=== PATIENT | male | born 1965 | race Two or more races ===

== ENCOUNTER 2017-01-15 07:58 | Emergency (ER) | payer MEDICAID ==
[~2017-01-15] VITALS: Ht 177.8 cm; Wt 83.5 kg
[~2017-01-15 07:58] MED LIST: AMOX-263 PO; GABA300C8; NAPR-607
[2017-01-15 08:21] VITALS: BP 131/68
[2017-01-15] MEDS ORDERED: ONDANSETRON HCL 4 MG/2 ML VIAL IM ONE (08:45)
[2017-01-15] MEDS ORDERED: HYDROmorphone HCL 2 MG/ML VL IM ONE (08:45)
== END 2017-01-15 10:12 | disposition home or self-care (01) ==
LOC: ER 07:58
DX: M51.86 Other intervertebral disc disorders, lumbar region (principal); Z88.6 Allergy status to analgesic agent
CPT/HCPCS: 72131; 82962; 93005; 96372; 99284; J1170; J2405

== ENCOUNTER 2022-12-30 10:08 | Emergency (ER) | payer MEDICAID ==
[~2022-12-30] VITALS: Ht 172.7 cm; Wt 68.1 kg
[~2022-12-30 10:08] MED LIST changes: +GABA300C10; -GABA300C8; -NAPR-607; +NAPR500T31
[2022-12-30] MEDS ORDERED: cefTRIAXone SOD 1,000 MG VL IM ONE (11:15)
[2022-12-30] MEDS ORDERED: methylPREDNISolone SOD SUCC 125 MG/2 ML VL IM ONE (11:15)
[2022-12-30 11:55] VITALS: BP 126/75
[2022-12-30] MEDS ORDERED: LIDO2SOL23 MT (12:06)
[2022-12-30] MEDS ORDERED: AZIT250T8 PO (12:06)
[2022-12-30] MEDS ORDERED: PROM1SOL4 PO (12:06)
== END 2022-12-30 12:11 | disposition home or self-care (01) ==
LOC: ER 10:08
DX: J03.90 Acute tonsillitis, unspecified (principal); H66.92 Otitis media, unspecified, left ear; Z79.899 Other long term (current) drug therapy; Z79.2 Long term (current) use of antibiotics; Z88.5 Allergy status to narcotic agent
CPT/HCPCS: 71046; 96372; 99284; J0696; J2930

== ENCOUNTER 2023-02-07 23:31 | Emergency (ER) | payer MEDICAID ==
[~2023-02-07] VITALS: Ht 172.7 cm; Wt 65.9 kg
[~2023-02-07 23:31] MED LIST changes: +AZIT250T8 PO; +LIDO2SOL23 MT; +PROM1SOL4 PO
[2023-02-08] MEDS ORDERED: NAP500T PO (04:19)
[2023-02-08 05:05] VITALS: BP 119/85
== END 2023-02-08 05:10 | disposition home or self-care (01) ==
LOC: ER 23:31
DX: S83.91XA Sprain of unspecified site of right knee, initial encounter (principal); Z79.2 Long term (current) use of antibiotics; Z79.899 Other long term (current) drug therapy; Z88.5 Allergy status to narcotic agent; W01.0XXA Fall on same level from slipping, tripping and stumbling without subsequent striking against object, initial encounter; Y93.89 Activity, other specified; Y92.89 Other specified places as the place of occurrence of the external cause; Y99.8 Other external cause status
CPT/HCPCS: 29505; 73562

== ENCOUNTER 2024-02-05 09:00 | Inpatient (IN) | payer MEDICAID ==
[~2024-02-05] VITALS: Ht 172.7 cm; Wt 90.0 kg
[2024-02-05 09:00] VITALS: BP 144/96; RESP 14; O2SAT 98
[~2024-02-05 09:00] MED LIST changes: +AZIT-185 PO; -AZIT250T8 PO; +GABA-1250; -GABA300C10; +IBUP-1455 PO; -LIDO2SOL23 MT; +LIDO2SOL26 MT; +NAP500T PO; +NAPR-746; -NAPR500T31
[2024-02-05 09:22] VITALS: PULSE 62
[2024-02-05 10:10] LABS: Basophils # (auto) 0 10 ^3/uL (0-0.2); Basophils % (auto) 0.6 % (0.0-2.0); Eosinophils # (auto) 0.2 10 ^3/uL (0-0.8); Eosinophils % (auto) 3.6 % (0.0-7.0); Hematocrit 44.3 % (41.0-53.0); Hemoglobin 15.2 g/dL (13.5-17.5); Lymphocytes # (auto) 1.2 10 ^3/uL (0.4-5.4); Lymphocytes % (auto) 18.9 % (10.0-50.0); Mean Corpuscular Hgb Conc. 34.3 g/dL (32.0-36.0); Mean Corpuscular Volume 87.4 fL (80.0-100.0); Monocytes # (auto) 0.6 10 ^3/uL (0-1.3); Monocytes % (auto) 8.9 % (0.0-12.0); Neutrophils # (auto) 4.4 10 ^3/uL (1.6-8.6); Nucleated Red Blood Cells % 0.1 %; Red Blood Cells 5.08 10^6/uL (4.5-5.90); Red Cell Distribution Width 14.2 % (11.8-14.3); White Blood Cell 6.5 10^3/uL (4.4-10.8)
[2024-02-05 10:19] LABS: Alanine Aminotransferase 22 U/L (7-40); Albumin 4.5 g/dL (3.2-4.8); Alkaline Phosphatase 109 U/L (46-116); Anion Gap 3 (5-15); Aspartate Aminotransferase 15 U/L (13-40); BUN/Creatinine Ratio 10.1 (10.0-20.0); Blood Urea Nitrogen 9 mg/dL (9-23); Calcium 9.5 mg/dL (8.5-10.1); Carbon Dioxide 30 mmol/L (20-30); Chloride 103 mmol/L (98-107); Glucose 240 mg/dL (74-106); Potassium 5.1 mmol/L (3.5-5.1); Sodium 136 mmol/L (136-145)
[2024-02-05 10:20] LABS: Bilirubin, Total 0.4 mg/dL (0.2-1.0); Total Protein 7.2 g/dL (5.7-8.2)
[2024-02-05 11:18] LABS: INR 0.97 (0.9-1.15); Prothrombin Time 10.3 sec (9.3-11.8)
[2024-02-05] MEDS: IOHEXOL 350 MG/ML 100ML IJ ONE (12:19)
[2024-02-05] MEDS: ASPirin 81 mg TAB PO ONE (12:31)
[2024-02-05] MEDS ORDERED: MORPHINE SULFATE INJ 2 MG/ml SYRG IV PRN (14:00)
[2024-02-05] MEDS ORDERED: NITROGLYCERIN 0.4 MG SL TAB SL PRN (14:00)
[2024-02-05] MEDS ORDERED: HYDROcodone-ACET 5/325MG TAB PO PRN (14:00)
[2024-02-05] MEDS ORDERED: DOCUSATE SOD 100 MG CAP PO PRN (14:00)
[2024-02-05] MEDS ORDERED: ONDANSETRON HCL 4 MG/2 ML VIAL IV PRN (14:00)
[2024-02-05] MEDS ORDERED: ACETAMINOPHEN 325 MG TAB PO PRN (14:00)
[2024-02-05] MEDS ORDERED: DEXTROSE (50%) 50ML SYRG IV PRN (14:00)
[2024-02-05] MEDS ORDERED: HYDROcodone-ACET 10/325MG TAB PO PRN (14:15)
[2024-02-05] MEDS ORDERED: ACCU-CHEK COMFORT CURVE STRIP VI SCH (17:00)
[2024-02-05] MEDS ORDERED: InsuLIN REG 1unit/0.01ml Soln (100units/ml) SC SCH (17:00)
[2024-02-05] MEDS ORDERED: ATORVASTATIN 20 MG TAB PO SCH (22:00)
[2024-02-06] MEDS ORDERED: ASPirin-EC 81 mg tab PO SCH (10:00)
[2024-02-06] MEDS ORDERED: CLOPIDOGREL BISULFATE 75 MG TAB PO SCH (10:00)
== END 2024-02-05 20:25 | disposition left against medical advice (07) | DRG 46 ==
LOC: ER 09:00 → TELE 14:00
PROVIDERS: ADMIT Nurse Practitioner Family; ATTEND Nurse Practitioner Family
DX: I65.21 Occlusion and stenosis of right carotid artery (principal); E66.9 Obesity, unspecified; G43.909 Migraine, unspecified, not intractable, without status migrainosus; F17.200 Nicotine dependence, unspecified, uncomplicated; G47.10 Hypersomnia, unspecified; G89.29 Other chronic pain; Z53.29 Procedure and treatment not carried out because of patient's decision for other reasons; Z79.2 Long term (current) use of antibiotics; Z79.899 Other long term (current) drug therapy; Z88.5 Allergy status to narcotic agent; Z68.30 Body mass index [BMI] 30.0-30.9, adult
CPT/HCPCS: 36415; 70450; 70496; 71045; 80053; 82140; 83880; 84484; 85025; 85610; 85730; 93005; 93886; G0378

== ENCOUNTER 2024-06-24 19:36 | Emergency (ER) | payer MEDICAID ==
[~2024-06-24] VITALS: Ht 172.7 cm; Wt 70.4 kg
[2024-06-24 20:35] VITALS: PULSE 95; RESP 17; O2SAT 100
--- NOTE | 2024-06-24 20:58 | ED.PDOC ---
History of Present Illness HPI Comments 59 y/o M, with a Hx of CVA, HLD, and tobacco use, presents with c/o left tonsil abscess and throat pain x10 days. Patient endorses on unprovoked onset, with worsening associated throat pain since. Patient comments on seeing his PCP and being placed on Z-pac medication regimen for tonsillitis 8x days ago and finishing the treatment, yesterday, with no relief or improvement. Patient then states on being seen and sent from [facility] care for issue. Patient denies having any jaw pain, numbness, tingling, fever, chills, or other associated symptoms or modifiers at this time. Chief Complaint: Sore Throat Time Seen by MD: 20:40 Primary Care Provider: RERE Reviewed Notes: Nurses Notes, Medications, Allergies Allergies: Coded Allergies: Morphine (Verified Allergy, Unknown, 01/15/17) Home Meds Active Scripts Ibuprofen Micronized (Ibuprofen) 800 Mg Tab, 800 MG PO TID PRN for 14 Days, #42 TAB Prov:DALE ORDAZ 02/26/23 Naproxen (NAPROSYN TABLET) 500 Mg Tb, 1 TAB PO BID PRN, #30 TAB 0 Refills Prov:SONJA CASTANEDA 02/08/23 Lidocaine HCl (Mouth-Throat) (Lidocaine HCl Viscous) 2 % Alie, 5 ML MT TID, #100 ML Prov:MARISA RUBIO 12/30/22 Promethazine-Dm (Promethazine Dm 6.25-15 mg/5Ml) 1 Alie Alie, 5 ML PO TID, #150 ML Prov:MARISA RUBIO 12/30/22 Azithromycin (ZITHROMAX TABLET) 250 Mg Tb, 250 MG PO DAILY, #6 TAB Prov:MARISA RUBIO 12/30/22 Amoxicillin & Pot Clavulanate (Augmentin) 875 Mg Tab, 875 MG PO BID for 14 Days, TAB Prov:RICHARD MICHEL MD 10/05/13 Reported Medications Naproxen (Naproxen) 500 Mg Tab, #60 10/02/13 Gabapentin (Gabapentin) 300 Mg Cap, #180 10/02/13 Information Source: Patient Mode of Arrival: Ambulatory Severity: Moderate Timing: Days Duration: Since onset Prehospital treatment: Other (see HPI) Context: see HPI Location: see HPI Quality see HPI Worsens see HPI Improves see HPI Associated signs and symptoms see HPI Other History see HPI Past Medical History PAST MEDICAL HISTORY: CVA, High Lipids Surgical History: Denies all surgeries Family History Family History: Unknown Social History Smoker: Cigarettes Alcohol: Denies ETOH Use Drugs: Denies Drug Use Lives In: Home Constitutional: denies: chills, diaphoresis, fatigue, fever, malaise, sweats, weakness, others EENTM: reports: throat pain, others (left tonsil abscess ); denies: blurred vision, double vision, ear bleeding, ear discharge, ear drainage, ear pain, ear ringing, eye pain, eye redness, hearing loss, mouth pain, mouth swelling, nasal discharge, nose bleeding, nose congestion, nose pain, photophobia, tearing, throat swelling, voice changes Respiratory: denies: cough, hemoptysis, orthopnea, SOB at rest, shortness of breath, SOB with excertion, stridor, wheezing, others Cardiovascular: denies: chest pain, dizzy spells, diaphoresis, Dyspnea on exertion, edema, irregular heart beat, left arm pain, lightheadedness, palpitations, PND, syncope, others Gastrointestinal: denies: abdomen distended, abdominal pain, blood streaked bowels, constipated, diarrhea, dysphagia, difficulty swallowing, hematemesis, melena, nausea, poor appetite, poor fluid intake, rectal bleeding, rectal pain, vomiting, others Genitourinary: denies: burning, dysuria, flank pain, frequency, hematuria, inc ontinence, penile discharge, penile sore, pain, testicle pain, testicle swelling, urgency, others Neurological: denies: dizziness, fainting, headache, left sided numbness, left sided weakness, numbness, paresthesia, pre-existing deficit, right sided numbness, right sided weakness, seizure, speech problems, tingling, tremors, weakness, others Musculoskeletal: denies: back pain, gout, joint pain, joint swelling, muscle pain, muscle stiffness, neck pain, others Integumetry: denies: bruises, change in color, change in hair/nails, dryness, laceration, lesions, lumps, rash, wounds, others Allergic/Immunocompromised: denies: Difficulty Healing, Frequent Infections, Hives, Itching, others Hematologic/Lymphatic: denies: anemia, blood clots, easy bleeding, easy bruising, swollen glands, others Endocrine: denies: excessive hunger, excessive sweating, excessive thirst, excessive urination, flushing, intolerance to cold, intolerance to heat, unexplained weight gain, unexplained weight loss, others Psychiatric: denies: anxiety, bipolar disorder, depression, hopeless, panic disorder, schizophrenia, sleepless, suicidal, others All Other Systems: Reviewed and Negative Physical Exam General Appearance: Mild Distress, Normal HEENT: Pharyngeal Erythema (Left side with purulent abscess), Pharynx Normal, TM Abnormal (L) ( 3x5cm peritonsillar abscess w/puss on the left tonsil) Neck: Full Range of Motion, Non-Tender, Normal, Normal Inspection Respiratory: Chest Non-Tender, Lungs Clear, No Accessory Muscle Use, No R espiratory Distress, Normal Breath Sounds Cardiovascular: No Edema, No JVD, No Murmur, No Gallop, Normal Peripheral Pulses, Regular Rate/Rhythm Breast Exam: Deferred Gastrointestinal: No Organomegaly, Non Tender, No Pulsatile Mass, Normal Bowel Sounds, Soft Genitalia: Deferred Pelvic: Deferred Rectal: Deferred Extremities: No calf tenderness, Normal capillary refill, Normal inspection, Normal range of motion, Non-tender, No pedal edema Musculoskeletal : Apperance: Normal Neurologic: Alert, financial advocate II-XII nml as Tested, No Motor Deficits, Normal Affect, Normal Mood, No Sensory Deficits Cerebellar Function: Normal Reflexes: Normal Skin: Dry, Normal Color, Warm Lymphatic: No Adenopathy Was a procedure done? Was a procedure done?: No Differential Dx Considerations may include: peritonsillar abscess, cellulitis X-Ray, Labs, Meds, VS Vital Signs Date Time Temp Pulse Resp B/P (MAP) Pulse Ox O2 Delivery O2 Flow Rate FiO2 06/24/24 20:35 95 17 100 Room Air* 0 21 06/24/24 20:15 97.7 95 14 129/76 (93) 100 97.7 06/24/24 20:06 97.7 95 19 129/76 (93) 100 Lab Test 06/24/24 20:36 Range/Units White Blood Count 6.5 4.4-10.8 10^3/uL Red Blood Count 4.97 4.5-5.90 10^6/uL Hemoglobin 14.7 13.5-17.5 g/dL Hematocrit 41.4 41.0-53.0 % Mean Corpuscular Volume 83.3 80.0-100.0 fL Mean Corpuscular Hemoglobin 29.6 28.0-32.0 pg Mean Corpuscular Hemoglobin Concent 35.6 32.0-36.0 g/dL Red Cell Distribution Width 14.9 H 11.8-14.3 % Platelet Count 441 140-450 10^3/uL Mean Platelet Volume 6.6 L 6.9-10.8 fL Neutrophils (%) (Auto) 66.3 37.0-80.0 % Lymphocytes (%) (Auto) 19.6 10.0-50.0 % Monocytes (%) (Auto) 8.7 0.0-12.0 % Eosinophils (%) (Auto) 4.8 0.0-7.0 % Basophils (%) (Auto) 0.6 0.0-2.0 % Neutrophils # (Auto) 4.3 1.6-8.6 10 ^3/uL Lymphocytes # (Auto) 1.3 0.4-5.4 10 ^3/uL Monocytes # (Auto) 0.6 0-1.3 10 ^3/uL Eosinophils # (Auto) 0.3 0-0.8 10 ^3/uL Basophils # (Auto) 0 0-0.2 10 ^3/uL Nucleated Red Blood Cells 0.1 % Prothrombin Time Pending Prothrombin Time INR Pending Sodium Level Pending Potassium Level Pending Chloride Level Pending Carbon Dioxide Level Pending Anion Gap Pending Blood Urea Nitrogen Pending Creatinine Pending Glomerular Filtration Rate Calc Pending BUN/Creatinine Ratio Pending Serum Glucose Pending Calcium Level Pending Total Bilirubin Pending Aspartate Amino Transferase (AST) Pending Alanine Aminotransferase (ALT) Pending Alkaline Phosphatase Pending Total Protein Pending Albumin Pending The patient will placed on clindamycin 900 mg and Solu-Medrol [address] of the neck with contrast and without are pending. The patient will be transferred to [facility] by Dr. Heriberto Salomon. Time of 1ST Reevaluation: 21:10 Reevaluation 1ST: Unchanged Patient Education/Counseling: Diagnosis, Treatment Family Education/Counseling: No Family Present Departure 1 Departure Time of Disposition: 21:18 Impression: Primary Impression: Acute tonsillitis Qualified Codes: J03.90 - Acute tonsillitis, unspecified Additional Impression: Peritonsillar abscess determined by examination Disposition: 02 SHORT TERM HOSPITAL Condition: Stable Discharged With: Self Critical Care Note Critical Care Time?: No Stability Stability form required: No Heart Score Heart Score: Heart Score Response (Comments) Value History N/A 0 EKG N/A 0 Age N/A 0 Risk Factors N/A 0 Troponin N/A 0 Total 0 ALBERTO FUENTES Jun 24, 2024 20:58 MEL PARKINSON MD Jun 24, 2024 21:19
[2024-06-24 21:02] LABS: Basophils # (auto) 0 10 ^3/uL (0-0.2); Basophils % (auto) 0.6 % (0.0-2.0); Eosinophils # (auto) 0.3 10 ^3/uL (0-0.8); Eosinophils % (auto) 4.8 % (0.0-7.0); Hematocrit 41.4 % (41.0-53.0); Hemoglobin 14.7 g/dL (13.5-17.5); Lymphocytes # (auto) 1.3 10 ^3/uL (0.4-5.4); Lymphocytes % (auto) 19.6 % (10.0-50.0); Mean Corpuscular Hemoglobin 29.6 pg (28.0-32.0); Mean Corpuscular Hgb Conc. 35.6 g/dL (32.0-36.0); Mean Corpuscular Volume 83.3 fL (80.0-100.0); Monocytes # (auto) 0.6 10 ^3/uL (0-1.3); Monocytes % (auto) 8.7 % (0.0-12.0); Neutrophils # (auto) 4.3 10 ^3/uL (1.6-8.6); Neutrophils % (auto) 66.3 % (37.0-80.0); Nucleated Red Blood Cells % 0.1 %; Platelet Count (auto) 441 10^3/uL (140-450); Red Blood Cells 4.97 10^6/uL (4.5-5.90); Red Cell Distribution Width 14.9 % (11.8-14.3); White Blood Cell 6.5 10^3/uL (4.4-10.8)
[2024-06-24 21:16] LABS: INR 1.04 (0.9-1.15)
[2024-06-24 21:21] LABS: Alanine Aminotransferase 25 U/L (7-40); Albumin 4.5 g/dL (3.2-4.8); Alkaline Phosphatase 152 U/L (46-116); Anion Gap 5 (5-15); Aspartate Aminotransferase 17 U/L (13-40); BUN/Creatinine Ratio 9.6 (10.0-20.0); Bilirubin, Total 0.4 mg/dL (0.2-1.0); Blood Urea Nitrogen 8 mg/dL (9-23); Calcium 9.4 mg/dL (8.7-10.4); Carbon Dioxide 28 mmol/L (20-30); Chloride 96 mmol/L (98-107); Glucose 232 mg/dL (74-106); Potassium 4.2 mmol/L (3.5-5.1); Sodium 129 mmol/L (136-145); Total Protein 8.9 g/dL (5.7-8.2)
--- NOTE | 2024-06-24 21:21 | DVH ---
EXAM: CT NECK WITH CONTRAST SOFT INDICATION: tonsillar abscess EXAM DATE: 06/24/2024 10:41 PM COMPARISON: None TECHNIQUE: Multiple axial CT images of the neck were obtained using bone algorithm. Axial and coronal reformatting was done. Bone and soft tissue windows were reviewed. Radiation dose Information: CT Dose: CTDI volume is 18.46 mGy. Dose-length product is 560.79 mGy*cm Findings: Nasopharynx, hypopharynx, and larynx are normal in caliber without evidence of focal mass. 3.2 x 3.0 x 3.0 cm left peritonsillar abscess with numerous prominent bilateral cervical lymph nodes. For example, 2.3 x 1.5 cm left cervical level 2 node with central necrosis. Parotid, submandibular, and sublingual glands are within normal limits. The tongue is unremarkable. Thyroid gland within normal limits. Musculoskeletal structures grossly unremarkable with no evidence of acute osseous abnormality. Impression: 1. 3.2 x 3.0 x 3.0 cm left peritonsillar abscess with numerous prominent bilateral reactive cervical lymph nodes.
[2024-06-24 22:50] VITALS: BP 130/76; PULSE 94; RESP 18; TEMP 97.9; O2SAT 94
[2024-06-24] MEDS: methylPREDNISolone SOD SUCC 125 MG/2 ML VL IV ONE (23:03)
[2024-06-24] MEDS: CLINDAMYCIN 900MG IV 50 ML IV ONE (23:04)
== END 2024-06-24 22:56 | disposition short-term general hospital (02) ==
LOC: ER 19:36
DX: J36 Peritonsillar abscess (principal); D69.6 Thrombocytopenia, unspecified; F17.210 Nicotine dependence, cigarettes, uncomplicated; E87.5 Hyperkalemia; Z79.899 Other long term (current) drug therapy; Z88.5 Allergy status to narcotic agent; Z86.73 Personal history of transient ischemic attack (TIA), and cerebral infarction without residual deficits
CPT/HCPCS: 36415; 70491; 80053; 85025; 85610; 96365; 96375; 99285; J2919; J3490

== ENCOUNTER 2025-05-14 00:07 | Emergency (ER) | payer MEDICAID ==
[~2025-05-14] VITALS: Ht 175.3 cm; Wt 77.1 kg
[2025-05-14 00:16] VITALS: BP 132/77; RESP 18; TEMP 97.9; O2SAT 99
[2025-05-14] MEDS ORDERED: SODIUM CHLORIDE 0.9% 1,000 ML IV ONE (01:00)
[2025-05-14 01:20] VITALS: PULSE 89
[2025-05-14 01:35] LABS: Hematocrit 37.5 % (41.0-53.0); Hemoglobin 13.0 g/dL (13.5-17.5); Mean Corpuscular Hemoglobin 28.4 pg (28.0-32.0); Mean Corpuscular Volume 81.9 fL (80.0-100.0); Nucleated Red Blood Cells % 0.1 %
[2025-05-14 01:39] LABS: Anion Gap 10 (5-15); Carbon Dioxide 24 mmol/L (20-31); Chloride 99 mmol/L (98-107); Potassium 3.6 mmol/L (3.5-5.1)
[2025-05-14 01:40] LABS: Calcium 9.1 mg/dL (8.7-10.4)
[2025-05-14 01:41] LABS: Sodium 133 mmol/L (136-145)
[2025-05-14 01:45] LABS: BUN/Creatinine Ratio 15.4 (10.0-20.0); Blood Urea Nitrogen 14 mg/dL (9-23)
[2025-05-14 01:50] LABS: Glucose 206 mg/dL (74-106)
--- NOTE | 2025-05-14 01:50 | ED.PDOC ---
History of Present Illness HPI Comments 60-year-old male with a history of CVA, and hyperlipidemia was brought in by Emergency Services for the chief complaint of a possible overdose of an unknown amount of GHB. Patient's is noted to be going in and out of sleep consciousness, but is answering questions appropriately at this time but is noted to be unresponsive to painful stimuli. All vital signs with noted to be stable. Patient denies any nausea, vomiting, diarrhea, abdominal pain, headache, blurry vision, generalized weakness, chest pain, or any other associated symptom, modified, factor at this time. PHYSICAL EXAM: General: Awake, alert and oriented. No acute distress. Skin: Skin in warm, dry and intact. Appropriate color for ethnicity. HEENT: The head is normocephalic and atraumatic. Conjunctivae are clear without exudates or hemorrhage. Sclera is non-icteric. EOM are intact. No signs of nystagmus. Eyelids are normal in appearance without swelling or lesions. Oral mucosa is pink and moist Neck: The neck is supple with normal range of motion. No JVD. Cardiac: Heart rate and rhythm are normal. No murmurs, gallops, or rubs are auscultated. Respiratory: No signs of respiratory distress. Lung sounds are clear in all lobes bilaterally without rales, rhonchi, or wheezes. Abdominal: Abdomen is soft, non-tender without distention, guarding or rigidity. Bowel sounds are present and normoactive in all four quadrants. Extremities: Upper and lower extremities are atraumatic in appearance without deformity or edema. Neurological: The patient is awake, alert and oriented to person, place, and time with normal speech. Speech is clear. There is no facial asymmetry. Psychiatric: Appropriate mood and affect. Good judgement and insight. REVIEW OF SYSTEMS: General: No fever, no chills, or fatigue HEENT: No sore throat, no earache, no congestion, no neck pain. Cardiac: No chest pain. No palpitations. Lungs: No shortness of breath, no cough. GI: No nausea, no vomiting, no diarrhea, no constipation, no abdominal pain : No dysuria, frequency, or urgency. No hematuria. Musculoskeletal: No joint pain , no joint swelling, no extremity edema. Skin: No rash, no itching. Neuro: No headache, no dizziness, no weakness Chief Complaint: Overdose Time Seen by MD: 01:46 Primary Care Provider: RERE Reviewed Notes: Nurses Notes, Collection Administrator Notes, Medications, Allergies Allergies: Coded Allergies: Morphine (Verified Allergy, Unknown, 01/15/17) Home Meds Active Scripts Ibuprofen Micronized (Ibuprofen) 800 Mg Tab, 800 MG PO TID PRN for 14 Days, #42 TAB Prov:DALE ORDAZ [employer] MANAGER 02/26/23 Naproxen (NAPROSYN TABLET) 500 Mg Tb, 1 TAB PO BID PRN, #30 TAB 0 Refills Prov:SONJA CASTANEDA 02/08/23 Lidocaine HCl (Mouth-Throat) (Lidocaine HCl Viscous) 2 % Alie, 5 ML MT TID, #100 ML Prov:MARISA RUBIO 12/30/22 Promethazine-Dm (Promethazine Dm 6.25-15 mg/5Ml) 1 Alie Alie, 5 ML PO TID, #150 ML Prov:MARISA RUBIO 12/30/22 Azithromycin (ZITHROMAX TABLET) 250 Mg Tb, 250 MG PO DAILY, #6 TAB Prov:MARISA RUBIO 12/30/22 Amoxicillin & Pot Clavulanate (Augmentin) 875 Mg Tab, 875 MG PO BID for 14 Days, TAB Prov:RICHARD MICHEL MD 10/05/13 Reported Medications Naproxen (Naproxen) 500 Mg Tab, #60 10/02/13 Gabapentin (Gabapentin) 300 Mg Cap, #180 10/02/13 Information Source: Patient, Emergency Med Personnel Mode of Arrival: EMS Severity: Moderate Timing: Hours Duration: Since onset, Hours Prehospital treatment: 12 Lead EKG, Accucheck, Oracle Sql Developer Past Medical History PAST MEDICAL HISTORY: CVA, High Lipids Surgical History: Denies all surgeries Family History Family History: Unknown Social History Smoker: Cigarettes Alcohol: Denies ETOH Use Drugs: Denies Drug Use Lives In: Home Was a procedure done? Was a procedure done?: No Differential Dx Considerations may include: Differential diagnosis considered includes but not limited to intracranial hemorrhage, stroke, head injury, seizure, metabolic disturbance, electrolyte imbalance, infection, substance intoxication, psychiatric cause, other systemic illness, other X-Ray, Labs, Meds, VS Vital Signs Date Time Temp Pulse Resp B/P (MAP) Pulse Ox O2 Delivery O2 Flow Rate FiO2 05/14/25 01:20 89 05/14/25 00:16 97.9 99 18 132/77 99 97.9 Lab Test 05/14/25 01:18 05/14/25 00:40 Range/Units White Blood Count 11.1 H 4.4-10.8 10^3/uL Red Blood Count 4.58 4.5-5.90 10^6/uL Hemoglobin 13.0 L 13.5-17.5 g/dL Hematocrit 37.5 L 41.0-53.0 % Mean Corpuscular Volume 81.9 80.0-100.0 fL Mean Corpuscular Hemoglobin 28.4 28.0-32.0 pg Mean Corpuscular Hemoglobin Concent 34.7 32.0-36.0 g/dL Red Cell Distribution Width 16.0 H 11.8-14.3 % Platelet Count 253 140-450 10^3/uL Mean Platelet Volume 6.9 6.9-10.8 fL Neutrophils (%) (Auto) 81.8 H 37.0-80.0 % Lymphocytes (%) (Auto) 8.4 L 10.0-50.0 % Monocytes (%) (Auto) 9.6 0.0-12.0 % Eosinophils (%) (Auto) 0.1 0.0-7.0 % Basophils (%) (Auto) 0.1 0.0-2.0 % Neutrophils # (Auto) 9.1 H 1.6-8.6 10 ^3/uL Lymphocytes # (Auto) 0.9 0.4-5.4 10 ^3/uL Monocytes # (Auto) 1.1 0-1.3 10 ^3/uL Eosinophils # (Auto) 0 0-0.8 10 ^3/uL Basophils # (Auto) 0 0-0.2 10 ^3/uL Nucleated Red Blood Cells 0.1 % Sodium Level 133 L 136-145 mmol/L Potassium Level 3.6 3.5-5.1 mmol/L Chloride Level 99 98-107 mmol/L Carbon Dioxide Level 24 20-31 mmol/L Anion Gap 10 5-15 Blood Urea Nitrogen 14 9-23 mg/dL Creatinine 0.91 0.700-1.30 mg/dL Glomerular Filtration Rate Calc 98 >90 mL/min BUN/Creatinine Ratio 15.4 10.0-20.0 Serum Glucose 206 H 74-106 mg/dL Calcium Level 9.1 8.7-10.4 mg/dL Plasma/Serum Blood Alcohol 4.6 <10 mg/dL Urine Color Colorless Yellow Urine Clarity Turbid H Clear Urine pH 6.5 5.0-9.0 Urine Specific [place] 1.010 1.001-1.035 Urine Protein Trace H Negative Urine Ketones Negative Negative Urine Blood Trace H Negative /uL Urine Nitrite Negative Negative Urine Bilirubin Negative Negative Urine Urobilinogen Normal Negative mg/dL Urine Leukocyte Esterase 3+ Negative /uL Urine RBC 5 0 - 3 /hpf Urine WBC Clumps Present None Seen /hpf Urine Microscopic WBC 362 H 0-3 /HPF Urine Squamous Epithelial Cells Few <5 /hpf Urine Bacteria Mod H None Seen /hpf Urine Hyaline Casts Few 0 - 2 /lpf Urine Mucus Few None Seen Urine Glucose Normal Normal mg/dL Urine Opiates Screen Neg NEGATIVE Urine Fentanyl Screen Neg NEGATIVE Urine Barbiturates Screen Neg NEGATIVE Urine Phencyclidine Screen Neg NEGATIVE Urine Amphetamines Screen Pos NEGATIVE Urine Benzodiazepines Screen Neg NEGATIVE Urine Cocaine Screen Neg NEGATIVE Urine Cannabinoids Screen Neg NEGATIVE Time of 1ST Reevaluation: 02:17 Reevaluation 1ST: Unchanged Patient Education/Counseling: Diagnosis, Treatment, Need For Follow Up Family Education/Counseling: No Family Present SEPSIS Sepsis Screen Date sepsis recognized/suspect: May 14, 2025 Time Sepsis recognized/suspect: 0023 Recent Procedure: No On Antibiotic Therapy: No Respiratory Rate >20: No Heart Rate >90: Yes Temp<36 C (96.8 F) or >38.3 C: No SBP <90 or MAP <65 mmHG: No New Acute Mental Status Change: No Is the patient on CPAP, BIPAP,: No Physician Orders Oracle Sql Developer (05/14/25 ) Rectal/Core Temps Only (05/14/25 00:52) Oxygen (05/14/25 ) Oracle Sql Developer (05/14/25 ) Vital Signs Date Time Temp Pulse Resp B/P (MAP) Pulse Ox O2 Delivery O2 Flow Rate FiO2 05/14/25 01:20 89 05/14/25 00:16 97.9 99 18 132/77 99 97.9 Laboratory Tests Test 05/14/25 01:18 White Blood Count 11.1 10^3/uL (4.4-10.8) H Departure 1 Departure Time of Disposition: 02:45 Impression: Primary Impression: Drug overdose Disposition: 07 LEFT AGAINST MEDICAL ADVICE Condition: Other Comments Despite our efforts, patient has decided to leave against medical advice. The patient has a normal mental status and full decisional capacity. Patient has been informed of the benefits of staying such as further diagnosis and treatment of possible serious etiology of the symptoms, and the risks of leaving such as , chronic pain, permanent disability or other serious adverse events which might be attributed to leaving. The patient displays clear understanding of these benefits and risks and chooses to leave. The patient is been informed also that they may return here at any time if they change their mind or need to further concerns or questions has been referred to their local medical physician for follow up VIK. Critical Care Note Critical Care Time?: No Stability Stability form required: No Heart Score Heart Score: Heart Score Response (Comments) Value History N/A 0 EKG N/A 0 Age N/A 0 Risk Factors N/A 0 Troponin N/A 0 Total 0 I personally scribed for YUSEF JI MD ([email or web address]) on 05/14/25 at 01:50. Electronically submitted by Huy Paula ([email or web address]). YUSEF JI MD May 14, 2025 01:50
[2025-05-14 03:11] LABS: Urine Protein, UAD TRACE (Negative); Urine WBC Clumps PRESENT /hpf (None Seen)
[2025-05-14 03:15] LABS: Cannabinoid Screen, Urine Neg (NEGATIVE)
[2025-05-14 03:23] LABS: Barbiturate Scree,Urine Neg (NEGATIVE); Opiate Scree,Urine Neg (NEGATIVE); Phencyclidine Screen, Urine Neg (NEGATIVE)
[2025-05-14 03:24] LABS: Amphetamine Screen, Urine Pos (NEGATIVE); Benzodiazephine Screen, Urine Neg (NEGATIVE); Cocaine Screen, Urine Neg (NEGATIVE)
--- NOTE | 2025-05-14 03:54 | ECG ---
[facility], [place] Test Date: 2025-05-14 Test Time: 01:20:19 Pat Name: SCOTT MARQUES Department: [facility] ED Patient ID: [id number] Room: Gender: Ruffling Machine Operator: KATHI : [id number] Requested By: YUSEF JI Order Number: [id number] Reading MD: Measurements Intervals [place] Rate: 89 P: 54 MD: 183 QRS: 57 QRSD: 90 T: 63 QT: 363 QTc: 442 Interpretive Statements Sinus rhythm ST elevation, consider inferior injury Baseline wander in lead(s) I,II,aVR Please click the below link to view image of tracing.
== END 2025-05-14 02:39 | disposition left against medical advice (07) ==
LOC: ER 00:07 → EDBD 00:07 → ER 02:39
DX: T50.901A Poisoning by unspecified drugs, medicaments and biological substances, accidental (unintentional), initial encounter (principal); E78.5 Hyperlipidemia, unspecified; Z86.73 Personal history of transient ischemic attack (TIA), and cerebral infarction without residual deficits; F17.210 Nicotine dependence, cigarettes, uncomplicated; Z79.899 Other long term (current) drug therapy; Z88.5 Allergy status to narcotic agent; Y92.89 Other specified places as the place of occurrence of the external cause
CPT/HCPCS: 36415; 80048; 80307; 80320; 81001; 85025; 93005